=== PATIENT | female | born 1945 | race Caucasian/White ===

== ENCOUNTER 2024-01-29 14:57 | Emergency (ER) | payer OTHER, SELFPAY ==
[2024-01-29 15:00] VITALS: BP 105/44; BMI 23.2
[2024-01-29 15:34] LABS: % Basophils 0.8 % (0-2); % Eosinophils 1.7 % (0-6); % Immature Granulocytes 0.3 % (0-0.5); % Lymphocytes 35.4 % (20.5-51.1); % Neutrophils 53.8 % (42.2-75.2); Absolute Basophils 0.1 10^3/uL (0-0.2); Absolute Eosinophils 0.1 10^3/uL (0-0.7); Absolute Lymphocytes 2.7 10^3/uL (1.2-3.4); Absolute Monocytes 0.6 10^3/uL (0.1-0.6); Absolute Neutrophils 4.1 10^3/uL (1.4-6.5); Hematocrit 37.6 % (37.0-47.0); Hemoglobin 12.7 g/dL (12.0-16.0); Mean Corp Hgb Conc. 33.8 g/dL (33.0-37.0); Mean Corpuscular Volume 88.9 fL (81.0-99.0); Mean Platelet Volume 9.6 fL (7.4-10.4); Nucleated Red Blood Cells % 0 %; Platelet Count 271 10^3/uL (130-400); Red Blood Cell Count 4.23 10^6/uL (4.20-5.40); Red Cell Dist. Width 12.7 % (11.5-14.5); White Blood Cell Count 7.6 10^3/uL (4.8-10.8)
[2024-01-29 15:38] LABS: INR 0.92; PT 12.3 Sec (11.4-14.6)
[2024-01-29 15:45] LABS: ALT (SGPT) 25 U/L (0-35); AST (SGOT) 42 U/L (14-36); Albumin 4.1 g/dl (3.5-5.0); Alkaline Phosphatase 63 U/L (38-126); Blood Urea Nitrogen 22 mg/dl (7-17); Calcium 10.1 mg/dl (8.4-10.2); Carbon Dioxide 27 mmol/L (22-30); Chloride 100 mmol/L (98-107); Estimated Creatinine Clearance 47 ml/min; Glucose 104 mg/dl (70-99); Potassium 3.7 mmol/L (3.5-5.1); Sodium 137 mmol/L (135-145); Total Bilirubin 0.7 mg/dl (0.2-1.3); Total Protein 6.6 g/dl (6.3-8.2); eGFR > 60.00
[2024-01-29 15:52] LABS: Troponin I < 0.012 ng/ml
[2024-01-29 17:28] VITALS: BP 129/64
[2024-01-29 18:25] LABS: Troponin I < 0.012 ng/ml
[2024-01-29 18:38] VITALS: BP 142/66
[2024-01-29 19:00] VITALS: BP 129/63
--- NOTE | 2024-01-29 19:19 | ED.GENMED ---
History of Present Illness
General
Chief Complaint: Chest Pain
Source: patient, spouse and family
Time Seen by Provider: 01/29/24 17:26
Travel History
Have you had any contact with someone who has COVID-19?: No
Do you have any symptoms of coronavirus? Fever > 100 degrees, chills, cough, shortness of breath, sore throat, loss of taste or smell, muscle aches, or headache?: No
History of Present Illness
History of Present Illness:
78-year-old female presents after she developed acute severe pain in epigastric area began around 2:30 PM. The patient states it lasted about an hour and has since fully resolved. She states during the pain and then she felt lightheaded and felt
almost like she was going to pass out at 1 point. She states she only felt little out of breath due to the pain. No fevers. No radiation of the pain. She did have coffee with cream and had a sandwich about an hour prior to this. Patient reports
that she did have a clean cath about 10 years ago. She recently saw her purchasing buyer and had a normal evaluation. Patient denies exertional chest pain
Past History
Past History
ED Past Medical History: GERD and HTN
Phy Exam
Physical Exam
Physical Exam:
CONSTITUTIONAL Patient alert and oriented to person, place and time. Well-appearing. Vital signs reviewed.
HEAD atraumatic, normocephalic.
EYES eyelids normal to inspection, Pupils equally round and reactive to light, Extraocular muscles intact, Conjunctiva normal, Sclera normal.
NECK normal range of motion, Trachea midline, no jugular venous distention.
RESPIRATORY CHEST No respiratory distress noted, Chest expansion equal, Bilateral breath sounds clear.
CARDIOVASCULAR regular rate and rhythm, Heart sounds normal.
ABDOMEN abdomen nontender, Bowel sounds normal. No distention.
BACK normal inspection, no obvious deformities
UPPER EXTREMITY range of motion normal, Motor strength normal, no cyanosis, no edema.
LOWER EXTREMITY range of motion normal, Motor strength normal, no cyanosis, no edema.
NEURO Speech normal, No focal motor deficits, [place] coma scale 15, Memory normal, Cranial Nerves intact to screening exam.
SKIN skin warm, dry, and normal in color.
PSYCHIATRIC patient oriented to person place and time, Normal affect.
Scores
Heart Score for Chest Pain Patients
STEMI patient?: No
History: Slightly or Non-Suspicious
ECG: Normal
Age: >/= 65 years
Risk Factors: 1 or 2 Risk Factors
Troponin: </= Normal Limit
Heart Score for Chest Pain Patients: 3
Heart Score Risk: 2.5% MACE over next 6 weeks
Course
Orders/Labs/Results
Orders:
Orders
01/29/24 14:58
ECG [Electrocardiogram (*1)] Urgent
Reason for Study: Chest Pain
EKG- Treatment ONCE
01/29/24 15:13
Type+Screen Urgent
Complete Blood Count/With Diff Urgent
Comprehensive Metabolic Panel Urgent
Lipase Urgent
Prothrombin Time Urgent
Troponin I Urgent
01/29/24 17:44
CR Chest - 2 Views Urgent
Comment:
Reason For Exam: epigastric/cp
US Abdomen Complete/Upper Urgent
Comment:
Reason For Exam: epigastric pain
01/29/24 17:50
Troponin I Urgent
01/29/24 19:23
Add On- LAB Urgent
Tests Added?: pancreatitis
Abnormal Lab Results
01/29/24
15:13
BUN 22 H mg/dl
(7-17)
Glucose 104 H mg/dl
(70-99)
AST 42 H U/L
(14-36)
01/29/24 15:13
01/29/24 15:13
Vital Signs
Initial and Last Documented VS:
Initial Vital Signs
Temp Pulse Resp BP Pulse Ox
99 F 68 20 105/44 100
01/29/24 15:00 01/29/24 15:00 01/29/24 15:00 01/29/24 15:00 01/29/24 15:00
Last Documented Vital Signs
Temp Pulse Resp BP Pulse Ox
99 F 76 21 129/63 99
01/29/24 15:00 01/29/24 19:45 01/29/24 19:45 01/29/24 19:00 01/29/24 19:30
MDM/Problems Addressed
Differential Diagnosis Includes:
Acute coronary syndrome, cholecystitis, cholelithiasis, pancreatitis, aortic dissection
MDM/Problems Addressed:
Chest pain, cholelithiasis
*Radiology
Radiology exam reviewed: all reviewed NAD by ED Provider
*Pulse Oximetry
Patient hypoxic: no
*EKG
Interpreted by ED Provider?: Yes
Interpretation: normal
Rate: normal
Rhythm: sinus
[place]: normal axis
Ischemia: no ischemia
*Employment Specialist/Program Manager Interpretation
Rate: normal
Interpretation: normal
Rhythm: sinus
*Critical Care Note
Total Time (30-74mins, 75-104mins- exclusive of procedures): Not Applicable
Data Reviewed
Further Testing Considered But Not Given:
Consider CTA of the chest but pain has resolved the mediastinum is narrow. No sign of aortic aneurysm or dissection. Blood pressure normal
Patient Management
Escalation/DeEscalation of care consider admission/obs:
Patient appears well. Her pain was acute and has completely resolved. Pain is in the epigastric abdominal region. Question whether this could have been painful cholelithiasis. Will recommend close outpatient PCP follow-up. Will also provide
follow-up to the chest pain hotline.
ED Attending Note
-
Portions of this chart may have been created with voice recognition software.� Occasional wrong word or��sound alike� substitutions may have occurred due to the inherent limitations of voice recognition software.
Discharge Plan
Departure
Patient Disposition: Home (Routine Discharge)
Date of Disposition: 01/29/24
Time of Disposition: 19:22
Patient with high blood pressure during this ER visit?: No
Discharge Problem:
Acute epigastric pain, Cholelithiasis
Instructions: Gallstones, Chest Pain [facility] Follow Up
Referrals:
Cisco Ballard, [Family Provider] -
Activity Restrictions/Additional Instructions:
Please see your doctor and/or cardiology in the next 3 to 5 days for follow-up and reevaluation. Stick to a bland diet and avoid fatty foods. Return immediately for worsening symptoms, shortness of breath, vomiting, fevers or any other concerns.
Interventions
Interventions:
*Risk Screen - Suicide Last Done: 01/29/24 15:00
*General Assessment Last Done: 01/29/24 17:23
*Neglect/Abuse Screening Last Done: 01/29/24 15:00
ED- Fall Risk Assessment Last Done: 01/29/24 17:29
*ED COVID-19 Vaccine History Last Done: 01/29/24 15:00
*Nursing Disposition Last Done: 01/29/24 19:59
ED- Cardiac Assessment Last Done: 01/29/24 17:29
Discharge Date and Time
Discharge Date/Time: 01/29/24 20:00
Print Language: URDU
[2024-01-29 19:58] LABS: Lipase 113 U/L (23-300)
== END 2024-01-29 20:00 | disposition home or self-care (01) ==
LOC: EMR 14:57
PROVIDERS: EMERGENCY PHYSICIAN Emergency Medicine; FAMILY PHYSICIAN Family Medicine
DX: R10.13 Epigastric pain (principal); K80.20 Calculus of gallbladder without cholecystitis without obstruction
CPT/HCPCS: 99285; 71046; 76700; 80053; 83690; 84484; 85025; 85610; 86850; 86900; 86901; 93005

== ENCOUNTER 2024-02-20 21:56 | Day surgery (SDC) | payer OTHER, SELFPAY ==
[2024-02-20] VITALS (9 sets, daily range): BP systolic 107–156; BP diastolic 46–61; BMI 24.2; BMI 23.2
[2024-02-20 14:31] LABS: % Basophils 0.3 % (0-2); % Eosinophils 0.9 % (0-6); % Immature Granulocytes 0.2 % (0-0.5); % Lymphocytes 15.5 % (20.5-51.1); % Monocytes 4.3 % (1.7-9.3); % Neutrophils 78.8 % (42.2-75.2); Absolute Eosinophils 0.1 10^3/uL (0-0.7); Absolute Monocytes 0.3 10^3/uL (0.1-0.6); Absolute Neutrophils 5.1 10^3/uL (1.4-6.5); Hematocrit 37.8 % (37.0-47.0); Hemoglobin 12.6 g/dL (12.0-16.0); Mean Corp Hgb Conc. 33.3 g/dL (33.0-37.0); Mean Corpuscular Hgb 30.1 pg (27.0-31.0); Mean Corpuscular Volume 90.4 fL (81.0-99.0); Mean Platelet Volume 9.7 fL (7.4-10.4); Nucleated Red Blood Cells % 0 %; Platelet Count 211 10^3/uL (130-400); Red Blood Cell Count 4.18 10^6/uL (4.20-5.40); White Blood Cell Count 6.5 10^3/uL (4.8-10.8)
[2024-02-20 14:45] LABS: ALT (SGPT) 123 U/L (0-35); AST (SGOT) 314 U/L (14-36); Albumin 4.1 g/dl (3.5-5.0); Alkaline Phosphatase 105 U/L (38-126); Blood Urea Nitrogen 16 mg/dl (7-17); Calcium 9.8 mg/dl (8.4-10.2); Carbon Dioxide 29 mmol/L (22-30); Chloride 101 mmol/L (98-107); Estimated Creatinine Clearance 47 ml/min; Glucose 108 mg/dl (70-99); Potassium 3.9 mmol/L (3.5-5.1); Sodium 134 mmol/L (135-145); Total Bilirubin 0.9 mg/dl (0.2-1.3); Total Protein 6.7 g/dl (6.3-8.2); eGFR > 60.00
[2024-02-20 14:56] LABS: Troponin I < 0.012 ng/ml
--- NOTE | 2024-02-20 15:02 | ED.GENMED ---
History of Present Illness
General
Chief Complaint: Chest Pain
Source: patient, records, family and ambulance crew
Exam Limitations: none
Time Seen by Provider: 02/20/24 15:02
Nursing documentation reviewed up to this point in time: agreed with
Travel History
Have you had any contact with someone who has COVID-19?: No
Do you have any symptoms of coronavirus? Fever > 100 degrees, chills, cough, shortness of breath, sore throat, loss of taste or smell, muscle aches, or headache?: No
History of Present Illness
History of Present Illness:
78-year-old female presents emergency department complaining of epigastric abdominal pain and chest pain she states radiates around to the right side and her back. She had similar pain 3 weeks ago and was seen in the emergency department, diagnosed
with biliary colic. States this feels similar. She denies any fevers. No vomiting. She was transferred by EMS, who gave her nitroglycerin. The pain has dissipated some. She is unsure if the nitroglycerin helped the pain.
Past History
Past History
ED Past Medical History: GERD, HTN, Other (Gallstone) and Other (Vertigo)
ED Past Surgical History: Appendectomy, Gynecological (Tubal ligation) and Tonsilectomy
Social History
Tobacco: Non-smoker
Alcohol: None
Drug: None
Personal:
Living: with family
Review of Systems
Review of Systems
Allergies reviewed?: Yes
All Other Systems: Not applicable
Constitutional: Reports no symptoms
EENT: Reports no symptoms
Respiratory: Reports no symptoms
Cardiac: Reports chest pain
ABD/GI: Reports abdominal pain
: Reports no symptoms
Musculoskeletal: Reports no symptoms
Skin: Reports no symptoms
Neurological: Reports no symptoms
Endocrine: Reports no symptoms
Hematologic/Lymphatic: Reports no symptoms
Psychiatric: Reports no symptoms
Phy Exam
Physical Exam
Physical Exam:
Physical Exam
General: no apparent distress, not acutely ill
Neck: supple. no meningeal signs. normal posterior pharynx
Heart: s1/s2 regular rate and rhythm, no murmur. equal radial
pulses.
HEENT: Pupils equal round reactive to light, EOMI
Lungs: no acute respiratory distress. clear bilaterally
Abdomen: normal bowel sounds. Mild epigastric tenderness, no rebound or guarding. no CVAT
Neuro: alert and oriented. no focal neurological deficits
Skin: no rash
Psychiatric: well kept. interactive and cooperative
Extremities: no edema. no calf tenderness. negative homans. good distal pulses
Scores
Heart Score for Chest Pain Patients
STEMI patient?: Not applicable
Course
Orders/Labs/Results
Orders:
Orders
02/20/24 14:16
Electrocardiogram (*1) Urgent
Reason for Study: Chest Pain
Cardiac Monitoring- Treatment ONCE
EKG- Treatment ONCE
IV Insert/Care/Rem.- Treatment PRN
02/20/24 14:19
Complete Blood Count/With Diff Urgent
Comprehensive Metabolic Panel Urgent
Lipase Urgent
Comment: ADD ON
Troponin I Urgent
02/20/24 15:16
US Abdomen Complete/Upper Urgent
Comment:
Reason For Exam: epigastric/ruq pain
02/20/24 18:31
LevoFLOXacin 500 MG/100 ML [Levaquin] 500 mg in 100 ml IV NOW
MetroNIDAZOLE 500 MG/100 ML [Flagyl 500 mg] 100 ml IV NOW
02/20/24 19:48
0.9% Sodium Chloride 1000 ml [Nss] 1,000 ml IV BOLUS
02/20/24 21:13
Admit/Transfer Patient As Directed
Co-Sign Provider:
Level of Care: Observation services
Assign to:: Medical/Surgical
Physician / Group: wade/General surgery service
Diagnosis: cholecystitis, acute
02/20/24 21:16
Code Status As Directed
Resuscitation Status: Full Code
02/20/24 23:19
0.9% Sodium Chloride 1000 ml [Nss] 1,000 ml IV 60 mls/hr
Famotidine [Pepcid] 20 mg PO HS
HYDROmorphone [Dilaudid] 0.5 mg IV Q2HPRN PRN
Morphine Sulfate 4 mg IV Q2HPRN PRN
02/20/24 23:19
Activity As Directed
Activity Level: Out of Bed-Early Mobility
Anti-embolism (ARLETH) Hose As Directed
Type: Thigh high
Intake/ Output As Directed
Frequency: Per unit guidelines
Pneumatic Compression Sleeves As Directed
Type: Thigh high
Vital Signs As Directed
Frequency: Per unit guidelines
DX Deep Vein Thrombosis Video Routine
02/21/24 Breakfast
NPO
Allow oral meds: No
Allow clear liquids: No
Comprehensive Metabolic Panel IN AM
02/21/24 08:00
Cholecalciferol (Vitamin D3) [VITAMIN D3 (cholecalciferol)] 25 mcg PO DAILY
02/21/24 20:00
Diltiazem Extended Release [Cardizem Cd] 120 mg PO DAILY@1999
Lisinopril [Zestril] 10 mg PO DAILY@1999
Rosuvastatin Calcium [Crestor] 40 mg PO DAILY@1999
Abnormal Lab Results
02/20/24
14:19
RBC 4.18 L 10^6/uL
(4.20-5.40)
Absolute Lymphs (auto) 1.0 L 10^3/uL
(1.2-3.4)
Neutrophils % 78.8 H %
(42.2-75.2)
Lymphocytes % 15.5 L %
(20.5-51.1)
Sodium 134 L mmol/L
(135-145)
Glucose 108 H mg/dl
(70-99)
AST 314 H U/L
(14-36)
ALT 123 H U/L
(0-35)
02/20/24 14:19
02/20/24 14:19
Vital Signs
Initial and Last Documented VS:
Initial Vital Signs
Temp Pulse Resp BP Pulse Ox
98.3 F 69 17 110/60 99
02/20/24 14:17 02/20/24 14:17 02/20/24 14:17 02/20/24 14:17 02/20/24 14:17
Last Documented Vital Signs
Temp Pulse Resp BP Pulse Ox
97.6 F 70 18 153/61 99
02/20/24 23:28 02/20/24 23:28 02/20/24 23:28 02/20/24 23:28 02/20/24 23:28
MDM/Problems Addressed
Differential Diagnosis Includes:
acs, cholecystitis
MDM/Problems Addressed:
78-year-old female with cholecystitis, discussed with Dr. Mahmood, who admits and will take the OR in a.m. Do not suspect ACS. Negative troponin, and symptoms were consistent with cholecystitis. IV Levaquin and Flagyl given.
Chronic conditions affecting care: HTN
*Radiology
Radiology exam reviewed: radiology read reviewed (Ultrasound shows gallbladder wall thickening, gallstones)
*Pulse Oximetry
Patient hypoxic: no
*EKG
Interpreted by ED Provider?: Yes
EKG Intrepretation Date: 02/20/24
EKG Intrepretation Time: 14:26
Interpretation: abnormal
Comparison EKG: changes noted
Heart Rate: 73
Rate: normal
Rhythm: sinus
[place]: normal axis
Interval: normal interval
QRS Pattern: normal QRS
Ischemia: no ischemia
*Critical Care Note
Total Time (30-74mins, 75-104mins- exclusive of procedures): Not Applicable
Patient Management
Social determinants of health affecting care: Living situation
Discussion with other providers: Door Manager (General surgery)
Escalation/DeEscalation of care consider admission/obs:
Admit indicated
ED Attending Note
-
Portions of this chart may have been created with voice recognition software.� Occasional wrong word or��sound alike� substitutions may have occurred due to the inherent limitations of voice recognition software.
Discharge Plan
Departure
Patient Disposition: Admit
Date of Disposition: 02/20/24
Time of Disposition: 18:26
Presentation/result/management discussed w/ accepting MD/DO: gen surgery Dr. Mahmood
Patient with high blood pressure during this ER visit?: No
Condition: Fair
Discharge Problem:
Acute cholecystitis
Interventions
Interventions:
*Risk Screen - Suicide Last Done: 02/20/24 23:26
*General Assessment Last Done: 02/20/24 14:17
*Neglect/Abuse Screening Last Done: 02/20/24 14:17
ED- Fall Risk Assessment Last Done: 02/20/24 14:50
*ED COVID-19 Vaccine History Last Done: 02/20/24 23:26
*Nursing Disposition Last Done: 02/20/24 23:11
ED- Cardiac Assessment Last Done: 02/20/24 14:50
Discharge Date and Time
Discharge Date/Time: 02/20/24 23:11
[2024-02-20 16:45] LABS: Lipase 129 U/L (23-300)
[2024-02-20] MEDS: LEVAQUIN 100 IV (20:08)
[2024-02-20] MEDS: NSS 1000 IV ×2 (20:24→23:49)
[2024-02-20] MEDS: FLAGYL 500 MG 100 IV (20:25)
[2024-02-20] MEDS: PEPCID 20 MG PO (23:49)
--- NOTE | 2024-02-20 23:58 | HPS.HSE ---
Addendum entered and electronically signed by Phil Mahmood MD 02/21/24 09:54:
I saw and examined the patient independently.
The Wireless Technician's note was reviewed and I agree with the note, assessment and plan except where noted below.
Comment: This is a 78-year-old female who presents with her second episode of chest pain/epigastric pain. She was seen in early January for similar symptoms (that episode was worse than this 1) and diagnosed with biliary colic with plans to see .
Martínez for outpatient evaluation. She presented to our hospital yesterday again with similar epigastric pain radiating to her right back. Ultrasound redemonstrated a gallstone stuck in the neck of the gallbladder with some surrounding
inflammation concerning for biliary colic versus early acute cholecystitis.
Will plan for laparoscopic cholecystectomy and cholangiogram.
N.p.o., IV fluids, IV antibiotics.
Risks/Benefits/Alternatives, expected postoperative course and possible complications (bleeding, infection, injury to surrounding structures, acute/chronic pain) discussed at length. Patient wishes to proceed with surgery. All questions answered.
Consent obtained.
Possible dispo home today pending operative and postop clinical course
I spent roughly 60 minutes in total for the care of this patient today including direct patient care and counseling, reviewing labs, imaging, coordination of care, as well as documentation.
Original Note:
Family Physician
-
Family Physician: Cisco Ballard
Chief Complaint
-
chest pain
History of Present Illness
This is a very pleasant 78 year old female who comes in via EMS due to c/o CP. She has been experiencing similar pain early in January 2024 and she was found to have gallstones and had an appointment scheduled next week with Dr. Soliz for evaluation
of possible elective cholecystectomy. She is followed by [facility] cardiology Dr. Carmenza Bowden. She states the pain feels more like chest discomfort radiating around to the right to her back. EMS did give her NTG SL x1 but unclear whether this was
effective. She denies WU, SOB, MYRICK, N/V/D, dysuria or bilateral lower extremity discomfort. Her BP was 110 systolic likely related to the NTG.
Medical History
Past Medical History
Past Medical History: Reports GERD, HTN and Other (gallstones, vertigo)
Past Surgical History: Reports Appendectomy, Gynocological (tubal ligation) and Tonsilectomy
Social History
Tobacco: Non-smoker
Alcohol: Occasional
Drug: None
Personal:
Living: With Family
Employment: Retired
Family History
Family History: Hypertension
Allergies / Home Medications
Allergies reflects when Allergies were last updated in [facility].
Home Medications with original date entered in [facility]
Allergy/Medication List:
Allergies
Allergy/AdvReac Type Severity Reaction Status Date / Time
Penicillins Allergy Hives Verified 01/29/24 15:06
Home Medications
Benefiber 1 tsp PO DAILY 02/20/24
aspirin 325 mg tablet 325 mg PO ONCE PRN chest pain 02/20/24
cholecalciferol (vitamin D3) 25 mcg (1,000 unit) tablet 25 mcg PO DAILY 02/20/24
diltiazem HCl 120 mg capsule,24 hr,extended release 120 mg PO DAILY@199902/20/24
famotidine 20 mg tablet 20 mg PO BID 02/20/24
ibuprofen 200 mg tablet 200 mg PO DAILYPRN PRN mild pain 02/20/24
lisinopril 20 mg-hydrochlorothiazide 12.5 mg tablet 0.5 tab PO DAILY@199902/20/24
rosuvastatin 40 mg tablet 40 mg PO DAILY@199902/20/24
Review of Systems
-
History Source: Patient, Family and Coordinated Provider
Constitutional: Reports No Symptoms
EENT: Reports No Symptoms
Respiratory: Reports No Symptoms
Cardiac: Reports No Symptoms
Abdomen/GI: Reports Abdominal Pain
: Reports No Symptoms
Musculoskeletal: Reports No Symptoms
Skin: Reports No Symptoms
Neurological: Reports No Symptoms
Endocrine: Reports No Symptoms
Hematologic/Lymphatic: Reports No Symptoms
Psych: Reports No Symptoms
Physical Exam
Vital Signs
Vital Signs
Temp Pulse Resp BP Pulse Ox
97.6 F 70 18 153/61 99
02/20/24 23:28 02/20/24 23:28 02/20/24 23:28 02/20/24 23:28 02/20/24 23:28
Physical Exam
General: Well Developed, Well Nourished, No Apparent Distress, Comfortable and Conversant
HEENT: NormoCephalic, Moist mucous membranes, Atraumatic and PERRLA
Respiratory: Clear and Non Labored Respirations
Cardiac: S1/S2 and Regular Rhythm
Breast: Deferred by me
GI: Soft and Non Distended
Rectal: Deferred by Provider
Genito-urinary: Clear Urine
Musculoskeletal: No Clubbing, No Cyanosis and No Edema
Skin: Warm and Dry
Neuro: Awake, Alert, AO x 3, No Motor Deficits and Nonfocal/grossly intact
Hematologic/Lymphatic: No Lymphadenopathy
Psych: Calm and Intact Judgment/Insight
Laboratory Results
-
02/20/24 14:19
02/20/24 14:19
Laboratory Results
Total Bilirubin 0.9 mg/dl (0.2-1.3) 02/20/24 14:19
AST 314 U/L (14-36) H 02/20/24 14:19
ALT 123 U/L (0-35) H 02/20/24 14:19
Alkaline Phosphatase 105 U/L (38-126) 02/20/24 14:19
Troponin I < 0.012 ng/ml 02/20/24 14:19
Lipase 129 U/L (23-300) 02/20/24 14:19
Data Reviewed
-
Ultrasound: Report Reviewed by me
Lab Data: Labs Reviewed by me
Old Records: Reviewed
Impression/Plan
-
IMPRESSION: Acute cholecystitis
PLAN: This is a very pleasant 78 year old female who comes in via EMS due to c/o CP. She has been experiencing similar pain early in January 2024 and she was found to have gallstones and had an appointment scheduled next week with Dr. Soliz for
evaluation of possible elective cholecystectomy. She is followed by [facility] cardiology Dr. Carmenza Bowden. She states the pain feels more like chest discomfort radiating around to the right to her back. EMS did give her NTG SL x1 but unclear whether this
was effective. She denies WU, SOB, MYRICK, N/V/D, dysuria or bilateral lower extremity discomfort. Her BP was 110 systolic likely related to the NTG. She appears comfortable during my interview.
*Acute cholecystitis: NPO, NS IVF, Levaquin and Flagyl IV, Dilaudid/Morphine IV pain, antiemetic prn.
*HTN: Lisinopril, diltiazem. Trend.
*Hyperlipidemia: rosuvastatin
*GERD: Famotidine
*Elevated transanimates: Trend.
*DVT prophylaxis: SCDs, TEDs, ambulates. OOB
*Disposition: General surgery service.
[2024-02-21] VITALS (13 sets, daily range): BP systolic 104–160; BP diastolic 48–71
[2024-02-21] MEDS: FLAGYL 500 MG 100 IV ×2 (04:23→11:49)
[2024-02-21 07:48] LABS: ALT (SGPT) 95 U/L (0-35); AST (SGOT) 111 U/L (14-36); Albumin 4.1 g/dl (3.5-5.0); Alkaline Phosphatase 101 U/L (38-126); Blood Urea Nitrogen 13 mg/dl (7-17); Calcium 9.3 mg/dl (8.4-10.2); Carbon Dioxide 24 mmol/L (22-30); Chloride 110 mmol/L (98-107); Estimated Creatinine Clearance 47 ml/min; Glucose 83 mg/dl (70-99); Potassium 3.9 mmol/L (3.5-5.1); Sodium 139 mmol/L (135-145); Total Bilirubin 0.9 mg/dl (0.2-1.3); Total Protein 6.6 g/dl (6.3-8.2); eGFR > 60.00
--- NOTE | 2024-02-21 09:41 | CM ---
Addendum entered by Jaqueline Lal RN 02/21/24 15:19:
Patient to be discharged today to home with no needs being identified. Patient's spouse to provide transportation.
Addendum entered by Jaqueline Lal RN 02/21/24 09:50:
Copy of Durable Power of [employer] Attendant for [employer] [facility] has been placed on the chart.
Original Note:
Reviewed the chart notes and spoke with the patient and her spouse at the bedside. The patient resides with her spouse in a one story home with a basement and one step to enter. Per patient, no DME/VN/SNF in the past. The patient confirmed her
pharmacy of choice is the [facility]. The patient anticipates going to the OR this morning for lap franky. CM continues to be available to patient/family and is monitoring medical plan for needs at discharge.
Plan: Discharge plans will depend on the patient's progress.
--- NOTE | 2024-02-21 11:12 | W.SUR.PREOP ---
Pre-Operative Surgical Note
-
I have examined this patient prior to the performance of the scheduled procedure.
The patient's condition is unchanged from the time of the current History and
Physical and the patient is able to undergo the scheduled procedure.
--- NOTE | 2024-02-21 11:12 | W.IMMPOSTOP ---
Surgical Immed Post Op Note
-
Primary Surgeon: Phil Mahmood MD
Assisting Surgeon: None
Pre-op Diagnosis: Biliary colic
Post-op Diagnosis: Same
Procedure Performed: Laparoscopic cholecystectomy with cholangiogram
Anesthesia Type: General
Specimen / Cultures: Gallbladder and contents
Estimated Blood Loss: 1 cc
Complications: None
Operative Findings: Minimally inflamed gallbladder. Critical view of safety obtained prior to a cholangiogram demonstrated no distal filling defects and normal biliary anatomy.
POST OP PLAN:
Imaging: None
Labs: Routine AM if still admitted
Diet: Advance to Regular as tolerated
Analgesia: Tylenol 650mg q6 Harry, Orly 5mg q6 PRN, Dilaudid 0.5mg q2h PRN
Neuro/vascular checks: q4h
AC/AP: Hold Therapeutic AC, Ok for DVT PPx
Activity: Ad Марина
Wound/Incisions/Drains: Routine
Abx: Can continue while admitted.
Dispo: RNF, anticipate discharge home later today.
--- NOTE | 2024-02-21 11:15 | OR.RPT ---
Operative Report
Operative Report
Patient Name: Laura Huerta
: 1945
Date of Operation: 02/21/2024
Preoperative Diagnosis: Symptomatic Cholelithiasis
Postoperative Diagnosis: Same
Procedure(s):
Laparoscopic Cholecystectomy with Cholangiogram
Surgeon(s):
Dr. Mahmood
Audit Control Clerk(s):
None
Anesthesia: General
Estimated Blood Loss: 1 cc
Urine Output: None
Drains/Lines/Implants: None
Specimens:
1. Gallbladder and contents
HPI/Surgical Indications:
This is a 78year old female who presented to our ED with her second bout of epigastric abdominal pain and has been 8 weeks. Exam, labs and imaging are consistent with symptomatic cholelithiasis. Risks/Benefits/Alternatives were discussed at length,
and the patient agreed to proceed with surgery.
Findings:
The patient was noted to have minimal evidence of gallbladder inflammation is noted but by some inflammation and edema in the cystic triangle. A Critical View of Safety was obtained. Cholangiogram showed no filling defects in the biliary system with
the Left, Right Anterior, Right posterior hepatic ducts, CHD, cystic duct and CBD all identified. There was brisk flow of dye into the duodenum.
Procedure Description:
The patient was brought to the Operating Room and placed in the supine position. IV antibiotics were infused and sequential compression devices were confirmed to be on. Following uneventful induction of general endotracheal anesthesia, an
orogastric tube was placed. The abdomen was prepped and draped in the usual sterile fashion. The abdomen was entered using an infraumbilical open Verito technique via her previous incision with a 12 mm trochar. Pneumoperitoneum to 15 mmHg pressure
was obtained without difficulty and we confirmed that no injury had occurred during our entry. The patient was positioned in reverse trendelenberg and rotated with the right side up slightly. Three (3) 5mm trocars were then placed along the right
subcostal margin. A locking grasping forceps was placed on the fundus of the gallbladder where it was then retracted cephalad and to the right. Using appropriate grasping instruments, the peritoneum overlying the triangle of Calot was incised. The
cystic duct/gallbladder junction was identified, dissected circumferentially. The cystic artery was identified medially and was dissected circumferentially. A critical view was obtained. A clip was then placed on the cystic duct/gallbladder
junction and an intraoperative cholangiogram performed using fluoroscopy, which showed good flow of dye into the duodenum. There were no intra- or extrahepatic bile duct filling defects. The biliary anatomy appeared normal. Following completion of
the cholangiogram, the catheter was removed. Two clips were then placed proximally on the cystic duct and the duct divided. Two clips were placed proximally and one distally on the cystic artery, and the artery was divided. Remaining soft tissue
attachments of the gallbladder to the liver bed were then divided using electrocautery. There was no spillage of bile or stones. The gallbladder bed was inspected and excellent hemostasis was obtained. The gallbladder was extracted through the 12
mm trocar site using an endocatch bag. The abdomen was again irrigated and excellent hemostasis was assured. All remaining trocars were then removed and the pneumoperitoneum was evacuated. The 12 mm trocar site was closed using a figure of 8 of 0
PDS. All trocar sites were closed at the skin level using 4-0 Monocryl followed by Dermabond. Overall, the patient tolerated the procedure well and was taken to the Recovery Room postoperatively in stable condition.
I was the attending physician and performed the procedure with no assistance. I was present for all portions of the case
Phil Mahmood MD
[2024-02-21] MEDS: NSS IV (14:29)
[2024-02-21] MEDS: MOTRIN 400 MG PO (14:54)
--- NOTE | 2024-02-21 15:03 | PTCARENOTE ---
pt reports nausea has subsided s/p procedure. tolerated lunch. voided x2. denies abd pain. prn Motrin provided for a chronic back pain. pt able ambulate x 1 stand by assist. family at bedside. discharge instructions provided.
--- NOTE | 2024-02-21 16:57 | W.DCSUMMARY ---
Discharge Summary
Discharge Data
Date of Admission: 02/21/24
Date of Discharge: 02/21/24
-
Pending Results: No
Hospital Course
This is a 78 yo female who presented with epigastric abdominal pain (second bought) with exam, labs and imaging consistent with acute symptomatic cholelithiasis. She was taken to the OR for laparoscopic cholecystectomy which she tolerated well
without complication. She was discharged to home post procedure once pain controlled and tolerating diet with outpatient follow up planned in the coming weeks.
Discharge Plan
-
Patient Disposition: Home (Routine Discharge)
Discharge Diagnosis/Procedures: Biliary colic. Laparoscopic cholecystectomy and cholangiogram.
Condition: Good
Diet: No restrictions
Activity: No strenuous activity
Driving Restrictions: As prior to admission
Bathing Restrictions: OK to Shower
Activity Restrictions/Additional Instructions:
Instructions following Laparoscopic Cholecystectomy
Please call [phone] if you have any questions or concerns after your surgery.
Wound Care:
Your incisions are covered with skin glue which will come off on its own in 5-10 days.
It is ok to shower the day after your surgery. Do not scrub the incisions, let soap and water wash over them and pat dry.
� Bruising around your incisions is normal.
� Using ice packs will help minimize this swelling.
� No swimming or soaking incisions for 1 week.
� Your stitches will dissolve and do not need to be removed.
Urinary retention:
If you are unable to urinate 6-8 hours after your surgery, please call [phone] to discuss further management.
Activity:
No heavy lifting more than 15 pounds for the next 3 weeks, then you may gradually lift heavier objects as tolerated by discomfort. Otherwise activity as tolerated by your comfort level.
Pain Management:
Use Tylenol, ibuprofen and ice packs to treat your pain.
� You may take 650 milligrams of Tylenol (Max 3 grams per day) every 6 hours, and 600 mg of ibuprofen also every 6 hours. (you can alternate them every 3 hours)
� You may use an ice pack to your incision as needed.
� If you still have pain not controlled by these measures, take your prescription pain medication as prescribed.
Medications:
You may resume your home medications.
Bowel Medications:
Prescription pain medication can make you constipated. If you take this medication, also take colace 100 mg twice daily (this is over the counter). If this is not sufficient, you may take Miralax (polyethylene glycol) to help move your bowels.
Diet:
After your procedure, there are no dietary restrictions. However, you may notice some loose stools with fatty meals for up to 4 weeks after surgery. If this is the case, please adjust to a low fat diet as needed.
Driving restrictions:
No driving if you are taking prescription pain medication or if you think your normal reaction time and attentiveness has been slowed by your surgery.
Things to Look out for:
Worsening Abdominal pain, fever, jaundice, redness or drainage from incision
Call Doctor for:
Please call if you notice worsening redness or drainage from incision(s) lasting longer than 5 days after your surgery, any foul-smelling drainage from the incision, pain not controlled by pain medications, persistent nausea and vomiting, or for any
fevers greater than 101.3 F. The number for questions/concerns is [phone]
Follow-up:
A follow-up appointment will be scheduled with your surgeon in 3-4 weeks. Please call prior to your appointment if you have any questions or concerns. [phone]
Referrals:
Cisco Ballard DO [Family Provider] -
Phil Mahmood MD [Active] -
Prescriptions:
New
acetaminophen [acetaminophen] 325 mg tablet
650 mg PO Q6HPRN PRN (Reason: mild pain) Qty: 14 0RF
tramadol 50 mg tablet
25 mg PO Q6HPRN PRN (Reason: severe pain/breakthrough pain) Qty: 8 0RF
Continued
lisinopril-hydrochlorothiazide 20-12.5 mg Tablet
0.5 tab PO DAILY@1999
aspirin 325 mg Tablet
325 mg PO ONCE PRN (Reason: chest pain)
famotidine 20 mg Tablet
20 mg PO BID
diltiazem HCl 120 mg Capsule,Extended Release 24 Hr
120 mg PO DAILY@1999
ibuprofen 200 mg Tablet
200 mg PO DAILYPRN PRN (Reason: mild pain)
rosuvastatin 40 mg Tablet
40 mg PO DAILY@1999
cholecalciferol (vitamin D3) 25 mcg (1,000 unit) Tablet
25 mcg PO DAILY
Benefiber powder
1 tsp PO DAILY
Discharge Orders:
Discharge Patient (As Directed); Ordered 02/21/24
Ordered By: Phil Mahmood
Discharge Date and Time
Discharge Date/Time: 02/21/24 15:58
Print Language: POLISH
== END 2024-02-21 15:58 | disposition home or self-care (01) ==
LOC: PACU 21:56
PROVIDERS: Emergency Medicine; Registered Nurse; ATTENDING PHYSICIAN Surgery; EMERGENCY PHYSICIAN Emergency Medicine; FAMILY PHYSICIAN Family Medicine
DX: K81.1 Chronic cholecystitis (principal)
CPT/HCPCS: 47563; 88304; 74300; 76000; 76700; 80053; 83690; 84484; 85025; 93005; 96365; 96367; 99285

== ENCOUNTER → 2024-05-21 14:26 | Outpatient (REF) | payer OTHER, SELFPAY | LOC: HWWDC 14:26 | PROVIDERS: ATTENDING PHYSICIAN Family Medicine | DX: Z12.31 Encounter for screening mammogram for malignant neoplasm of breast (principal) | CPT/HCPCS: 77063; 77067 ==

== ENCOUNTER → 2025-05-27 09:57 | Outpatient (REF) | payer OTHER, SELFPAY | LOC: HWRAD 09:57 | PROVIDERS: ATTENDING PHYSICIAN Nurse Practitioner; FAMILY PHYSICIAN Family Medicine | DX: N39.46 Mixed incontinence (principal); N81.10 Cystocele, unspecified; N81.6 Rectocele | CPT/HCPCS: 76770; 76856 ==

== ENCOUNTER → 2025-06-17 09:36 | Outpatient (REF) | payer OTHER, SELFPAY | LOC: RAD 09:36 | PROVIDERS: ATTENDING PHYSICIAN Nurse Practitioner; FAMILY PHYSICIAN Family Medicine | DX: Q62.39 Other obstructive defects of renal pelvis and ureter (principal) | CPT/HCPCS: 74178; Q9967 ==

== ENCOUNTER → 2025-07-01 13:04 | Outpatient (REF) | payer OTHER, SELFPAY | LOC: HWWDC 13:04 | PROVIDERS: ATTENDING PHYSICIAN Family Medicine | DX: Z12.39 Encounter for other screening for malignant neoplasm of breast (principal); M85.80 Other specified disorders of bone density and structure, unspecified site | CPT/HCPCS: 77063; 77067; 77080 ==

== ENCOUNTER 2025-09-15 07:21 | Outpatient (RCR) | payer OTHER, SELFPAY | END 2025-09-15 23:59 | disposition home or self-care (01) | LOC: RPT 07:21 | PROVIDERS: ATTENDING PHYSICIAN Nurse Practitioner; FAMILY PHYSICIAN Family Medicine | DX: N39.3 Stress incontinence (female) (male) (principal); N39.41 Urge incontinence; N81.10 Cystocele, unspecified; N81.6 Rectocele; M62.89 Other specified disorders of muscle; Z73.6 Limitation of activities due to disability | CPT/HCPCS: 97140; 97162; 97530 ==

== ENCOUNTER 2025-10-01 08:16 | Outpatient (RCR) | payer OTHER, SELFPAY | END 2025-10-01 23:59 | disposition home or self-care (01) | LOC: RPT 08:16 | PROVIDERS: ATTENDING PHYSICIAN Nurse Practitioner; FAMILY PHYSICIAN Family Medicine | DX: N39.3 Stress incontinence (female) (male) (principal); N39.41 Urge incontinence; N81.10 Cystocele, unspecified; N81.6 Rectocele; M62.89 Other specified disorders of muscle; Z73.6 Limitation of activities due to disability | CPT/HCPCS: 97110; 97140; 97530 ==